=== PATIENT | male | born 1965 | race Caucasian/White ===

== ENCOUNTER 2017-09-19 08:09 | Inpatient (IN) | payer MEDICARE ==
[2017-09-19] VITALS (12 sets, daily range): BP systolic 133–152; BP diastolic 97–105; PULSE 72–96; RESP 18–20; TEMP 97.8–98; O2SAT 95–97
[~2017-09-19] VITALS: Ht 195.6 cm; Wt 123.8 kg
[2017-09-19] MEDS ORDERED: POVIDONE IODINE 5% (ANTISEPSIS KIT) 4 APPLICATIONS EACH NARE SCH (09:00)
[2017-09-19] MEDS ORDERED: METOPROLOL TARTRATE 25 MG TAB PO PRN (09:00)
[2017-09-19] MEDS ORDERED: MUPIROCIN 2% OINT 1 APPLIC/GM SYR NASAL SCH (09:00)
[2017-09-19] MEDS ORDERED: CHLORHEXIDINE GLUCONATE 2 % 1 PACK (2 CLOTHS) TOPICAL PRN (09:00)
[2017-09-19] MEDS ORDERED: CHLORHEXIDINE GLUCONATE 2 % 1 PACK (2 CLOTHS) TOPICAL SCH (09:00)
[2017-09-19] MEDS ORDERED: LACTATED RINGER'S 1000 ML IV PRN (09:00)
[2017-09-19] MEDS ORDERED: ceFAZolin 2 GM PREMIX 50 ML IV SCH (09:00)
[2017-09-19] MEDS ORDERED: SODIUM CHLORID 0.9% 500 ML IV PRN (09:00)
[2017-09-19] MEDS ORDERED: POVIDONE IODINE 5% (ANTISEPSIS KIT) 4 APPLICATIONS EACH NARE PRN (09:00)
[2017-09-19] MEDS ORDERED: VANCOMYCIN 1000 MG/NS 250 ML IV SCH ×2 (09:00)
[2017-09-19] MEDS ORDERED: LORazepam 1 MG TAB SL SCH (09:00)
[2017-09-19 09:06] LABS: AUTOMATED NEUTROPHIL # 9.6 TH/MM3 (1.8-7.7); BASOPHIL # 0.1 TH/MM3 (0-0.2); BASOPHIL % 0.7 % (0.0-2.0); EOSINOPHIL # 0.3 TH/MM3 (0-0.4); EOSINOPHIL % 2.1 % (0.0-4.0); HEMATOCRIT 43.3 % (39.0-51.0); HEMOGLOBIN 14.3 GM/DL (13.0-17.0); LYMPH % 12.2 % (9.0-44.0); LYMPHOCYTE # 1.5 TH/MM3 (1.0-4.8); MEAN CELL VOLUME 97.7 FL (80.0-100.0); MEAN CORPUSCULAR HEMOGLOBIN 32.4 PG (27.0-34.0); MEAN CORPUSCULAR HGB CONC 33.1 % (32.0-36.0); MEAN PLATELET VOLUME 8.5 FL (7.0-11.0); MONO % 7.6 % (0.0-8.0); MONOCYTE # 0.9 TH/MM3 (0-0.9); NEUT % 77.4 % (16.0-70.0); PLATELET COUNT 299 TH/MM3 (150-450); RED BLOOD COUNT 4.43 MIL/MM3 (4.50-5.90); RED CELL DISTRIBUTION WIDTH 15.1 % (11.6-17.2); WHITE BLOOD COUNT 12.4 TH/MM3 (4.0-11.0)
[2017-09-19] MEDS ORDERED: XARE20TA PO (09:13)
[2017-09-19] MEDS ORDERED: CARV12.5 PO (09:13)
[2017-09-19] MEDS ORDERED: SPIRCAP INH (09:13)
[2017-09-19] MEDS ORDERED: SYMB160A INH (09:13)
[2017-09-19] MEDS ORDERED: ASPI81TA23 PO (09:13)
[2017-09-19] MEDS ORDERED: INDO50CA PO (09:13)
[2017-09-19] MEDS ORDERED: BUDE0.25 NEB (09:13)
[2017-09-19] MEDS ORDERED: CARD240C6 PO (09:13)
[2017-09-19 09:26] LABS: BICARBONATE 26.8 MEQ/L (21.0-32.0); CALCIUM 8.6 MG/DL (8.5-10.1); CREATININE 0.94 MG/DL (0.60-1.30)
[2017-09-19 09:31] LABS: INTERNATIONAL NORMALIZED RATIO 1.1 RATIO; PROTHROMBIN TIME - PATIENT 10.9 SEC (9.8-11.6)
[2017-09-19] MEDS ORDERED: FAMOTIDINE 20 MG/2 ML VIAL ONE (11:38)
[2017-09-19] MEDS ORDERED: PROPOFOL 200 MG/20 ML AMP IV ONE (12:00)
[2017-09-19] MEDS ORDERED: DEXAMETHASONE SOD PHOS 4 MG/ML VIAL IV ONE (12:00)
[2017-09-19] MEDS ORDERED: MIDAZOLAM HCL 2 MG/2 ML VIAL ONE ×2 (12:01→12:18)
[2017-09-19] MEDS ORDERED: VANCOMYCIN 500 MG VIAL ONE (12:14)
[2017-09-19] MEDS ORDERED: LIDOCAINE HCL 2% 50 ML VIAL ONE (12:14)
--- NOTE | 2017-09-19 13:27 | CATHPROC ---
[employer] HIS Report Study Information Study Number Admission Scheduled Start Study Start [id number] Sep 19 2017 8:09AM 09/19/2017 Sep 19 2017 11:39AM [place] Service Cardiac Pacer/ICD Admit Source Facility Department Other [facility] - Materials Management Supervisor Physician and Clinical Staff Initial Brianne Cooley Vp Genetic Domenica Hogan RN Other Anesthesia, RUBBER TUBING SPLICER Recorder Missy Herrera,ONELIA Scrub David Roach,RT(R) Procedures Performed Procedure Lead Insertion Equipment Time Administration Vice President Description Size Mfg Part Number Used/Scraped CATHETER, FR4 BERENSTEIN [id number] 12:59 ANGIO-DYNAMICS FR 4 Used 65CM *[id number] DEFIBRILLATOR, INTICA 7 VR-T 12:55 BIOTRONIK VVE-VDDR [id number] Used DX 12:53 BIOTRONIK LEAD, PLEXA PRO-MRI SD 65/18 [id number] Used 13:01 BIOTRONIK LEAD, SOLIA 60 53 PRO MRI * [id number] Used DERMABOND, ADHESIVE SKIN [id number] 11:44 CORDIS/PACER * Used GLUE MINI *[id number] TP-1103 11:44 MEDLINE INDUSTRIES SUTURE, STRIP PLUS 1/2" * Used *[id number] 11:44 MEDLINE PACER LIN, LIMB * 2530 *[id number] Used [id number] 11:44 MEDLINE PACER PACK, PACER CUSTOM * Used *[id number] 12:59 [employer] MEDICAL PACER SAFE SHEATH, FR7, 13CM FR 7 CLS-1007 Used 12:36 [employer] MEDICAL PACER SAFE SHEATH, FR8, 13CM FR 8 CLS-1008 Used 12:42 Needle Sponge Count 2 22 Used 12:42 Needle Sponge Count 20 200 Used 12:41 Needle Sponge Count 3 3 Used 12:59 Needle Sponge Count 4 4 Used SUTURE, 0 ETHIBOND [CT1] (CX21D), 8pk SUTURE, 2-0 VICRYL [CT1] (CDX073R) SUTURE, 2-0 VICRYL [CT1] (FEH573S) [id number] 11:44 [employer] BL[employer]ET,WARM AIR CCL * Used *[id number] [facility] PAD, ELECTROSURGICAL 11:44 * [id number] *[id number] Used SURGICAL GROUNDING ORANGE 4747-5407 11:44 [employer] DENIZ. / * Used *84142 Equipment Model, Serial, Lot Number and Expiration Data Description Model Number Serial Number Lot Number Expiration Date DEFIBRILLATOR, INTICA 7 VR-T DX [id number] 12-13-2018 LEAD, PLEXA PRO-MRI SD 65/18 [id number] 06-14-2019 History: Allergies Allergy Reaction No Known Allergies History: Risk Factors Hypertension Yes Chronic Lung Disease History: Risk Factors Selection Items EF </= 30% Labs Hgb (g/dl) Hct (%) RBC (MIL/MM3) WBC (l/cumm) Platelets (thousands) 11.60-17.00 35.00-51.00 4.00-5.90 4.00-11.00 150.00-450.00 14.0 43 4.4 12.4 299 Glucose (mg/dl) BUN (mg/dl) Creatinine (mg/dl) BUN:Creatinine (1:x) 74.00-106.00 7.00-18.00 0.50-1.30 10.00-20.00 84 11 0.9 12.2 Na (meq/l) K (meq/l) 136.00-145.00 3.50-5.10 140 4.3 INR (PTT:PT) 0.90-1.10 1.1 Medication Medication Total Dose (Bolus/Oral) Medication Total Dosage/Unit 2% XYLOCAINE 50 mL Medications (Bolus/Oral) Medication Time Given Dosage/Unit Administered By Reason 2% XYLOCAINE 09/19/2017 12:48:52 PM 50 mL Brianne Zurita 50 mL 2% XYLOCAINE given in lab by Brianne Zurita via Subcutaneous. Ordered by Brianne Zurita. Medication (Drip) Medication Time Given Dosage/Unit Concentration/Unit Diluent (ml) Solution ANCEF 09/19/2017 12:00:04 PM 1 g 1 g ANCEF given in lab by Anesthesia, RUBBER TUBING SPLICER via Peripheral IV. Ordered by Brianne Zurita. Reason: As pe r physicians verbal order. VANCOMYCIN DRIP 09/19/2017 12:00:50 PM 1 g 1 g VANCOMYCIN DRIP given in lab by Anesthesia, RUBBER TUBING SPLICER via Peripheral IV. Ordered by Brianne Zurita. [place] son: As per physicians verbal order. Initial Case Assessment Cardiovascular HR Rhythm NIBP 83 AF 134/96 Edema Present Skin color Skin None Normal Warm Dry Circulatory - Right Pulses Dorsalis Pedis 1 Scale (0,1,2,3,4,d) Circulatory - Left Pulses Dorsalis Pedis 1 Scale (0,1,2,3,4,d) Circulatory - Lower Extremities Color Lower Right Color Lower Left Normal Normal Neurological State Oriented to time-place- Alert Moves all extremities person Respiration - General Respiration Rate SpO2 (%) (B/min) 20 99 Final Case Assessment Cardiovascular HR NIBP Chest Pain 79 112/70 0 Edema Present Skin color Skin None Normal Warm Dry Circulatory - Right Pulses Dorsalis Pedis 1 Scale (0,1,2,3,4,d) Circulatory - Left Pulses Dorsalis Pedis 1 Scale (0,1,2,3,4,d) Circulatory - Lower Extremities Color Lower Right Color Lower Left Normal Normal Neurological State Oriented to time-place- Drowsy Moves all extremities person Respiration - General Respiration Rate SpO2 (%) (B/min) 16 98 Chronological Log Time Study Chronological Log 11:51:30 Patient arrived via Bed. 11:51:38 Anesthesia at bedside. Assumes care of patient. 11:51:48 Patient Name, D.O.B, / Armband Verified By R.N. 11:51:51 Consent signed by the physician and the patient and verified by the Materials Management Supervisor staff. 11:51:55 Pre-op and post- op instructions given; patient acknowledges understanding of instructions. 11:53:00 Verbal Stimulation=2 Physical Stimulation=2 Airway=2 Respiration=2 TOTAL=8. (0=absent, 1=li mited, 2=present) 11:53:18 Patient has been NPO for More than 6Hrs. 11:53:22 Skin Breakdown- cancerous lesions right cheek, bilateral shoulders, forearms 11:54:30 Patient Warmer Placed on the Table. 11:54:36 Disposable Defibrillator Pads Placed On Patient. 11:54:46 Alejandra Prominences Protected 11:55:54 A # 20 IV was noted in the Wrist (left). Grade = 0 0.9%NaCl @ KVO. 11:55:59 A # 20 IV was noted in the Wrist (right). Grade = 0 0.9% NaCl at KVO. Assessment: Initial Case, HR=83 BPM, Rhythm=AF, JQEY=450/96 mmhg, Edema=None, Color=Normal, Ski n = Warm, Dry Right Pulses: Robert Ped=1 Left Pulses: Robert Ped=1 12:00:00 Lower Right Extremities: Color=Normal Lower Left Extremities: Color=Normal Neurological: State=Alert, Ox3, NEWELL Respiration: Resp=20 B/min, SpO2=99 % 1 g ANCEF given in lab by Anesthesia, RUBBER TUBING SPLICER via Peripheral IV. Ordered by Brianne Zurita. Reason: As per physicians 12:00:04 verbal order. 1 g VANCOMYCIN DRIP given in lab by Anesthesia, RUBBER TUBING SPLICER via Peripheral IV. Ordered by Mary Zurita Reason: As per 12:00:50 physicians verbal order. 12:04:17 History and physical on the chart. 12:04:24 Table restraints applied according to hospital policy 12:04:27 Bovie ground pad applied to: right thigh 12:04:39 2% CHLORHEXIDINE GLUCONATE WASH AND NASAL SWIPE DONE PRIOR TO PROCEDURE. 12:17:58 Upper Chest Prepped Times Two. 12:33:02 Pt draped with sterile drape. 12:34:15 Biotronik rep present in lab for procedure. 12:37:52 Reference ECG taken First Sponge And Instrument Count Done by David Roach, RT(R). 12:40:29 Hypo's: 4, Sponges: 20, Bovie/scratch: 2 Sutures: 10, Blades: 1, Instruments: 26, Syveck Patches: ~SYVECK PATCH~ verified by MM 12:43:59 MD arrived. Time Out #2 - Consents verified, patient in correct position, all results are labled and displa yed, safety precautions 12:46:52 taken, antibiotics administered. Time out concurred by MD, individual staff and RUBBER TUBING SPLICER in procedu re Time Out. Correct patient, procedure, procedure equipment, site and side verified with physicia n present. Time 12:47:52 concurred by MD, individual staff and RUBBER TUBING SPLICER. 12:48:52 50 mL 2% XYLOCAINE given in lab by Brianne Zurita via Subcutaneous. Ordered by Brianne Zurita . 12:49:08 Vascular access was obtained in the Subclav. Vein (Lft. 12:50:01 Surgical Incision Made. 12:50:12 A pocket was created at the L Upper Chest. 12:52:05 A SAFE SHEATH, FR8, 13CM FR 8 was advanced into the Subclav. Vein (Lft using the Modified S eldinger technique. 12:53:37 A LEAD, PLEXA PRO-MRI SD 65/18 was inserted and positioned in the RV. 12:53:57 Lead placement verified under fluoroscopy 12:53:59 The RV lead impedance and threshold being tested. 12:54:11 The RV lead was sutured to the fascia. 12:55:23 A DEFIBRILLATOR, INTICA 7 VR-T DX VVE-VDDR was connected and placed in the pocket. 12:56:00 Pocket flushed with antibiotic solution 13:00:09 A LEAD, SOLIA 60 53 PRO MRI * was inserted and positioned in the RA. Second Sponge And Instrument Count Done by David Roach RT(R). 13:05:39 Hypo's: 4, Sponges: 20, Bovie/scratch: 2 Sutures: 10, Blades: 1, Instruments: 26, Syveck Patches: ~SYVECK PATCH~ 13:09:01 The DFT was Success at 30 Joules, 52 Ohms lead impedance and 5.8 ms charge time. 13:10:41 The pocket is being closed. Final Sponge And Instrument Count Done by David Roach RT(R). 13:10:44 Hypo's: 4, Sponges: 20, Bovie/scratch: 2 Sutures: 10, Blades: 1, Instruments: 26, Syveck Patches: ~SYVECK PATCH~ 13:10:51 Implant Procedure was performed. 13:10:59 A ICD Implant . (Dual) 13:13:32 No case complications noted. 13:13:35 Cine recording checked. 13:13:38 Holding Area notified of successful intervention. Spoke with Rajinder. 13:13:53 Bedside Report will be given. Assessment: Final Case, HR=79 BPM, RYBN=571/70 mmhg, Chest Pain=0, Edema=None, Color=Normal, S kin = Warm, Dry Right Pulses: Robert Ped=1 Left Pulses: Robert Ped=1 13:15:40 Lower Right Extremities: Color=Normal Lower Left Extremities: Color=Normal Neurological: State=Drowsy, Ox3, NEWELL Respiration: Resp=16 B/min, SpO2=98 % 13:17:33 Steri-strips and a sterile dressing applied to site. 13:17:34 Case End 13:20:26 Implantable Device card placed in patient's chart. 13:28:10 Patient moved to stretcher 13:31:39 Defibrillator and ground pads removed. Skin intact. 13:32:00 Transported to recovery area in stable condition. End Study - Contrast Media Used In Study Contrast Total Opened (mL) Total Used (mL) Total Wasted (mL) Unspecified 0 0 0 End Study - Maximum Contrast Load Max Contrast Load (mL) 695.5 End Study - Radiation Exposure Fluoro Time (minutes) 1.2 End Study - Patient Disposition Complications Transferred To Interventional Outcome No Telemetry Bed successful
[2017-09-19] MEDS ORDERED: DO NOT ADM ANY ANTICOAGULANT DRUGS PRN (13:32)
--- NOTE | 2017-09-19 13:36 | PD.CARD ---
DUAL CHAMBER DEFIB IMPLANT PROCEDURE DATE: Sep 19, 2017 NYHA Classification: Class III (Moderate) Prevention: Primary Dual Chamber Defib Mr. Osborne is a 52-year-old male with congestive heart failure, non ischemic cardiomyopathy, ejection fraction 30%, atrial fibrillation, previous ablation admits for dual-chamber defibrillator implantation, device testing and tikosyn administration. The risks, the nature and the benefit of the procedure were clearly stated to his . The risks include pneumothorax, cardiac perforation, stroke, and even . He understood and agreed to proceed. PROCEDURE After written informed consent was obtained the patient was brought to the EP lab where he was prepared and draped in the usual sterile fashion. Conscious sedation was initiated and maintained throughout the procedure by the anesthesiologist. Once sedation was verified, the left infraclavicular area was anesthetized with 2% Xylocaine. Using modified Seldinger technique, the left subclavian vein was cannulated on two occasions and two guidewires were advanced. Then, using #11 blade scalpel, a 3 centimeter incision was made two fingerbreadths below the clavicle. Dissection was then taken down to deep fascial layer using Bovie cautery and blunt dissection. Into the inferomedial direction, a device pocket was dissected. Then the wires were dissected into the pocket. A 2-0 Vicryl suture was placed around the wires to prevent back-bleeding. At this point, over the lateral wire, a 8-Welsh dilator and introducer was advanced. As the dilator and wire were removed, an active fixation right ventricular pacing, sensing and defibrillatory lead was advanced. After adequate pacing and sensing thresholds were obtained, the lead was secured in the pocket using #2 Ethibond suture. Then, over the remaining wire, a 7-Welsh dilator introducer was advanced. As the dilator and wire were removed, an active fixation right atrial pacing and sensing lead was advanced. After adequate pacing and sensing thresholds were obtained, the lead was secured in the pocket using #2 Ethibond suture. At that point, the pocket was copiously irrigated with antibiotic solution. The leads were connected to the generator and placed in the pocket. I did proceed with NIPS. Patient was shocked into sinus rhythm by a 30 joules defibrillatory shock. Shocking impedance was 52 ohms, charge time 5.8 seconds. At that point NIPS was complete. I did proceed with wound closure. The deep fascial layer was approximated using 2-0 Vicryl suture in a continuous fashion. The subcutaneous layer was approximated using 2-0 Vicryl suture in a continuous fashion. The subcuticular layer was approximated with 2-0 Vicryl suture in a continuos fashion. Dermabond adhesive was applied to the wound followed by a sterile pressure dressing. There was no complication. The patient tolerated procedure. Blood loss minimal. IMPLANTED HARDWARE The implanted defibrillator generator is a [employer]let Sciencesronik model number 750843, serial number [id number]. The right atrial pacing and sensing lead is a Biotronik model number Solia S 53, serial number [id number]. The right ventricular pacing, sensing defibrillatory lead is a [employer] Sciencesronik model number 738384. serial # [id number] THRESHOLDS The right atrial pacing threshold in bipolar mode post cardioversion was 0.8 volts at 0.5 milliseconds. Lead impedance 522 ohms and P wave at 2.1 millivolts. The right ventricular pacing threshold in bipolar mode was 0.6 volts at 0.5 milliseconds. Lead impedance 620 ohms and R wave at 9.0 millivolts. SETTINGS The device set in a DDD-60 upper limit 130 beats per minute. AV delay extended to maximum to facilitate A-pacing V-sensing. Defibrillatory portion for two zones, one zone for ventricular tachycardia between 180 to 250 beats per minute. Initial therapy consists of one burst of ATP, one ramp, 81%, 10 pulse, 10 second decremental, followed by a 20, then 30 and all subsequent shocks at 40 -joules defibrillatory shock. The second zone for ventricular fibrillation above 250 beats, first therapy at 30 and all subsequent shocks at 40-joules defibrillatory shock. CONCLUSIONS Successful defibrillator implantation and device testing. COMMENT AND RECOMMENDATIONS The patient will be transferred to telemetry unit. Tikosyn will be initiated. Will be DH in the next 48-72 hours. Brianne Zurita MD Sep 19, 2017 13:36
[2017-09-19] MEDS ORDERED: ONDANSETRON HCL 4 MG/2 ML VIAL IV PUSH PRN (13:45)
[2017-09-19] MEDS ORDERED: SODIUM CHLORIDE 0.9% FLUSH 10 ML FLUSH IV FLUSH PRN (13:45)
[2017-09-19] MEDS ORDERED: ACETAMINOPHEN/CODEINE 300 MG/30 MG TAB PO PRN (13:45)
--- NOTE | 2017-09-19 14:19 | RADRPT ---
EXAM DATE/TIME: 09/19/2017 13:47 [place] COMPARISON: No previous studies available for comparison. INDICATIONS : Evaluate for pacemaker placement. MEDICAL HISTORY : Chronic obstructive pulmonary disease. SURGICAL HISTORY : ENCOUNTER: Subsequent ACUITY: 1 day PAIN SCORE: 4/10 LOCATION: Bilateral chest FINDINGS: The heart is normal in size. Left subclavian dual lead pacemaker has its tips in the right atrium and right ventricle with no pneumothorax noted. The lungs are clear. The only vascular pattern is normal . CONCLUSION: Left subclavian dual-lead pacemaker has its tip in the right atrium and right ventricle and there is no evidence of pneumothorax. Seven Null MD on September 19, 2017 at 14:15 Board Certified Radiologist. This report was verified electronically.
[2017-09-19] MEDS: ACETAMINOPHEN/CODEINE 300 MG/30 MG TAB PO PRN (17:16)
[2017-09-19] MEDS: INDOMETHACIN 50 MG CAP PO SCH (17:16)
[2017-09-19] MEDS: RIVAROXABAN 20 MG TAB PO SCH (17:16)
[2017-09-19] MEDS ORDERED: DOFETILIDE 500 MCG CAP PO SCH (21:00)
[2017-09-19] MEDS: BUDESONIDE-FORMOTEROL 160/4.5 MCG INHALER INH SCH (21:00)
[2017-09-19] MEDS ORDERED: CARVEDILOL 12.5 MG TAB PO SCH (21:00)
[2017-09-19] MEDS: CARVEDILOL 12.5 MG TAB PO SCH (21:17)
[2017-09-19] MEDS: ceFAZolin 2 GM PREMIX 50 ML IV SCH (21:17)
[2017-09-19] MEDS: SODIUM CHLORIDE 0.9% FLUSH 10 ML FLUSH IV FLUSH SCH (21:17)
[2017-09-19] MEDS: SACUBITRIL/VALSARTAN 24 MG-26 MG TAB PO SCH (21:17)
--- NOTE | 2017-09-19 21:24 | EKG ---
Date Performed: 09/19/2017 Time Performed: 09:08:56 PTAGE: 52 years EKG: Atrial fibrillation. Septal T wave changes are nonspecific Abnormal ECG NO PREVIOUS TRACING DOCTOR: Guillermo Cross Interpretating Date/Time 09/19/2017 21:23:15
[2017-09-19] MEDS: DOFETILIDE 250 MCG CAP PO SCH (21:58)
[2017-09-20] VITALS (27 sets, daily range): BP systolic 94–151; BP diastolic 66–106; PULSE 62–89; RESP 16–20; TEMP 97.5–98.4; O2SAT 96–97
[2017-09-20] MEDS: ceFAZolin 2 GM PREMIX 50 ML IV SCH ×2 (03:27→12:29)
[2017-09-20] MEDS ORDERED: RESP: BUDESONIDE 0.25 MG/2 ML NEB NEB SCH (08:00)
[2017-09-20] MEDS: SODIUM CHLORIDE 0.9% FLUSH 10 ML FLUSH IV FLUSH SCH ×2 (09:00→20:37)
[2017-09-20] MEDS: BUDESONIDE-FORMOTEROL 160/4.5 MCG INHALER INH SCH ×2 (09:25→20:37)
[2017-09-20] MEDS: CARVEDILOL 12.5 MG TAB PO SCH ×2 (09:26→20:37)
[2017-09-20] MEDS: TIOTROPIUM BROMIDE 18 MCG INH INH SCH (09:26)
[2017-09-20] MEDS: INDOMETHACIN 50 MG CAP PO SCH ×3 (09:26→17:32)
[2017-09-20] MEDS: RIVAROXABAN 20 MG TAB PO SCH (09:26)
[2017-09-20] MEDS: DOFETILIDE 250 MCG CAP PO SCH ×2 (09:27→20:36)
[2017-09-20] MEDS: ASPIRIN EC 81 MG TABEC PO SCH (09:27)
[2017-09-20] MEDS: SACUBITRIL/VALSARTAN 24 MG-26 MG TAB PO SCH ×2 (09:27→20:37)
[2017-09-20] MEDS: ACETAMINOPHEN/CODEINE 300 MG/30 MG TAB PO PRN ×2 (09:28→20:37)
--- NOTE | 2017-09-20 12:38 | EKG ---
Date Performed: 09/19/2017 Time Performed: 15:59:04 PTAGE: 52 years EKG: Sinus rhythm . Poor initial anterior forces, which may be a normal variant Otherwise, within normal limits Abnorma l ECG PREVIOUS TRACING : 09/19/2017 09.08 Since previous tracing, there is a rhythm change from atria l fibrillation to sinus rhythm DOCTOR: Zach Jacob Interpretating Date/Time 09/20/2017 12:37:06
--- NOTE | 2017-09-20 12:39 | EKG ---
Date Performed: 09/19/2017 Time Performed: 19:11:56 PTAGE: 52 years EKG: Sinus rhythm Poor initial anterior forces, which may be a normal variant Otherwise within normal limits Abnormal ECG PREVIOUS TRACING : 09/19/2017 15.59 Compared to prior tracing no significant change DOCTOR: Zach Jacob Interpretating Date/Time 09/20/2017 12:38:01
--- NOTE | 2017-09-20 12:47 | EKG ---
Date Performed: 09/20/2017 Time Performed: 07:35:08 PTAGE: 52 years EKG: Sinus rhythm Poor initial anterior forces in V1 and V2, which may be a normal variant Otherwise within normal [place] its Abnormal ECG PREVIOUS TRACING : 09/19/2017 19.11 Since previous tracing, no significant change. DOCTOR: Zach Jacob Interpretating Date/Time 09/20/2017 12:45:28
[2017-09-21] VITALS (27 sets, daily range): BP systolic 119–167; BP diastolic 83–99; PULSE 60–70; RESP 18–20; TEMP 97.4–98.2; O2SAT 96–99
[2017-09-21] MEDS: CARVEDILOL 12.5 MG TAB PO SCH ×2 (08:52→20:41)
[2017-09-21] MEDS: ASPIRIN EC 81 MG TABEC PO SCH (08:52)
[2017-09-21] MEDS: SACUBITRIL/VALSARTAN 24 MG-26 MG TAB PO SCH ×2 (08:52→20:41)
[2017-09-21] MEDS: TIOTROPIUM BROMIDE 18 MCG INH INH SCH (08:52)
[2017-09-21] MEDS: DOFETILIDE 250 MCG CAP PO SCH ×2 (08:52→20:41)
[2017-09-21] MEDS: RIVAROXABAN 20 MG TAB PO SCH (08:52)
[2017-09-21] MEDS: INDOMETHACIN 50 MG CAP PO SCH ×3 (08:52→17:12)
[2017-09-21] MEDS: ACETAMINOPHEN/CODEINE 300 MG/30 MG TAB PO PRN ×2 (08:53→20:41)
[2017-09-21] MEDS: BUDESONIDE-FORMOTEROL 160/4.5 MCG INHALER INH SCH ×2 (08:53→20:42)
[2017-09-21] MEDS: SODIUM CHLORIDE 0.9% FLUSH 10 ML FLUSH IV FLUSH SCH ×2 (08:53→20:42)
--- NOTE | 2017-09-21 12:39 | EKG ---
Date Performed: 09/20/2017 Time Performed: 19:12:38 PTAGE: 52 years EKG: Sinus rhythm Lateral T wave changes are nonspecific Poor initial anterior forces, probable normal variant. Since previous tracing, no significant change noted Borderline ECG PREVIOUS TRACING : 09/20/2017 07.35 DOCTOR: Zach Jacob Interpretating Date/Time 09/21/2017 12:38:36
--- NOTE | 2017-09-21 12:40 | EKG ---
Date Performed: 09/21/2017 Time Performed: 07:01:46 PTAGE: 52 years EKG: Sinus rhythm with 1 PVC Poor inital anterior forces, which is probably normal variant Low voltage in precordial l audrey Compared to previous tracing, the PVC is new. Abnormal ECG PREVIOUS TRACING : 09/20/2017 19.12 DOCTOR: Zach Jacob Interpretating Date/Time 09/21/2017 12:40:00
--- NOTE | 2017-09-21 14:47 | PD.CARD.PN ---
Subjective Subjective Remarks no cv complaints Objective Medications Current Medications Medications (Trade) Dose Ordered Sig/Ria Route Start Time Stop Time Status Last Admin Lactated Ringer's 1,000 ml @ 30 mls/hr Q24H PRN IV 09/19/17 09:00 09/22/17 08:59 Sodium Chloride 500 ml @ 30 mls/hr [id number] PRN IV 09/19/17 09:00 09/22/17 08:59 (Lopressor) 25 mg CARGO SURVEYOR PRN PO 09/19/17 09:00 09/22/17 08:59 (Chlorhexidine 2% Cloth) 3 pack CARGO SURVEYOR PRN TOPICAL 09/19/17 09:00 09/22/17 08:59 09/19/17 09:07 Cefazolin Sodium/ Dextrose 50 ml @ 100 mls/hr CARGO SURVEYOR IV 09/19/17 09:00 09/22/17 08:59 (Ativan) 1 mg CARGO SURVEYOR SL 09/19/17 09:00 09/22/17 08:59 (Betadine 5% Antisepsis Kit) 2 applic CARGO SURVEYOR EACH NARE 09/19/17 09:00 09/22/17 08:59 09/19/17 09:06 (Bactroban Nasal 2% Oint) 1 applic CARGO SURVEYOR NASAL 09/19/17 09:00 09/22/17 08:59 Vancomycin HCl 1000 mg/Sodium Chloride 250 ml @ 250 mls/hr CARGO SURVEYOR IV 09/19/17 09:00 09/22/17 08:59 (Zofran Inj) 4 mg Q4H PRN IV PUSH 09/19/17 13:45 (Tylenol-Codeine #3) 1 tab Q4H PRN PO 09/19/17 13:45 09/19/17 21:58 (Tylenol-Codeine #3) 2 tab Q4H PRN PO 09/19/17 13:45 09/21/17 08:53 (NS Flush) 2 ml BID IV FLUSH 09/19/17 21:00 09/21/17 08:53 (NS Flush) 2 ml UNSCH PRN IV FLUSH 09/19/17 13:45 (Ecotrin Ec) 81 mg DAILY PO 09/20/17 09:00 09/21/17 08:52 (Pulmicort Respule Neb) 0.25 mg DAILY NEB NEB 09/20/17 08:00 UNV (Symbicort 160-4.5 Mcg Inh) 2 puff Q12HR INH 09/19/17 21:00 09/21/17 08:53 (Indocin) 50 mg TID PO 09/19/17 18:00 09/21/17 11:25 (Xarelto) 20 mg DAILY PO 09/19/17 15:00 09/21/17 08:52 (Spiriva Inh) 18 mcg DAILY INH 09/20/17 09:00 09/21/17 08:52 (Coreg) 25 mg BID PO 09/19/17 21:00 09/21/17 08:52 (Entresto 24-26 Mg) 1 tab BID PO 09/19/17 21:00 09/21/17 08:52 (Tikosyn) 500 mcg BID PO 09/19/17 21:30 09/21/17 08:52 Vital Signs / I&O Vital Signs Date Time Temp Pulse Resp B/P (MAP) Pulse Ox O2 Delivery O2 Flow Rate FiO2 09/21/17 14:00 61 09/21/17 13:00 65 09/21/17 12:00 63 09/21/17 11:44 97.8 64 18 119/83 (95) 97 09/21/17 11:00 60 09/21/17 10:00 60 09/21/17 09:00 64 09/21/17 08:52 98 Nasal Cannula 2.00 09/21/17 08:00 63 09/21/17 07:38 98 Room Air 09/21/17 07:37 97.4 60 18 138/95 (109) 98 09/21/17 07:00 62 09/21/17 05:00 63 09/21/17 04:00 98.1 62 18 154/93 (113) 99 09/21/17 04:00 62 09/21/17 04:00 Room Air 09/21/17 03:00 67 09/21/17 02:00 62 09/21/17 01:00 64 09/21/17 00:00 Room Air 09/21/17 00:00 98.0 70 18 167/99 (121) 96 09/21/17 00:00 70 09/20/17 23:00 66 09/20/17 22:00 63 09/20/17 21:00 66 09/20/17 20:00 Room Air 09/20/17 20:00 64 09/20/17 20:00 98.2 64 18 151/106 (121) 97 09/20/17 18:00 66 09/20/17 17:00 62 09/20/17 16:20 67 09/20/17 15:45 97.5 62 20 149/93 (111) 97 09/20/17 15:40 75 09/20/17 15:03 Nasal Cannula 2.00 I/O 09/20/17 09/20/17 09/20/17 09/21/17 09/21/17 09/21/17 07:00 15:00 23:00 07:00 15:00 23:00 Intake Total 480 ml 1440 ml 720 ml Output Total 800 ml 1325 ml 1100 ml Balance -320 ml 115 ml -380 ml Intake Oral 480 ml 1440 ml 720 ml Output Urine Total 800 ml 1325 ml 1100 ml # Bowel Movements 0 0 Physical Exam GENERAL: Well-nourished, well-developed patient. SKIN: Warm and dry. HEAD: Normocephalic. EYES: No scleral icterus. No injection or drainage. NECK: Supple, trachea midline. No JVD or lymphadenopathy. CARDIOVASCULAR: Regular rate and rhythm without murmurs, gallops, or rubs. RESPIRATORY: Breath sounds equal bilaterally. No accessory muscle use. GASTROINTESTINAL: Abdomen soft, non-tender, nondistended. EXTREMITIES: No cyanosis, or edema. NEUROLOGICAL: Awake, alert, and oriented x 3. Non-focal. Assessment and Plan Problem List: (1) Congestive heart disease ICD Codes: I50.9 - Heart failure, unspecified Plan: cont medical management anticipated date of discharge tomorrow Dr. Carranza to follow in AM Vu Reyes MD Sep 21, 2017 14:47
[2017-09-22] VITALS (20 sets, daily range): BP systolic 121–135; BP diastolic 74–90; PULSE 62–70; RESP 18–22; TEMP 97.4–98.6; O2SAT 94–98
[2017-09-22] MEDS: SODIUM CHLORIDE 0.9% FLUSH 10 ML FLUSH IV FLUSH SCH (09:00)
[2017-09-22] MEDS: ACETAMINOPHEN/CODEINE 300 MG/30 MG TAB PO PRN (09:28)
[2017-09-22] MEDS: BUDESONIDE-FORMOTEROL 160/4.5 MCG INHALER INH SCH (09:28)
[2017-09-22] MEDS: INDOMETHACIN 50 MG CAP PO SCH ×2 (09:29→13:25)
[2017-09-22] MEDS: DOFETILIDE 250 MCG CAP PO SCH (09:29)
[2017-09-22] MEDS: TIOTROPIUM BROMIDE 18 MCG INH INH SCH (09:29)
[2017-09-22] MEDS: SACUBITRIL/VALSARTAN 24 MG-26 MG TAB PO SCH (09:29)
[2017-09-22] MEDS: CARVEDILOL 12.5 MG TAB PO SCH (09:29)
[2017-09-22] MEDS: ASPIRIN EC 81 MG TABEC PO SCH (09:30)
[2017-09-22] MEDS: RIVAROXABAN 20 MG TAB PO SCH (09:30)
[2017-09-22] MEDS ORDERED: DOFE1CAP PO (18:22)
[2017-09-22] MEDS ORDERED: SACU1TAB PO (18:22)
--- NOTE | 2017-09-22 18:37 | EKG ---
Date Performed: 09/22/2017 Time Performed: 07:31:22 PTAGE: 52 years EKG: Sinus rhythm . Septal T wave changes are nonspecific Borderline ECG PREVIOUS TRACING : 09/21/2017 18.37 Compared to prior tracing no significant change DOCTOR: Kiah Stack Interpretating Date/Time 09/22/2017 18:37:14
--- NOTE | 2017-09-22 18:37 | EKG ---
Date Performed: 09/21/2017 Time Performed: 18:37:38 PTAGE: 52 years EKG: Sinus rhythm . Septal T wave changes are nonspecific Borderline ECG PREVIOUS TRACING : 09/21/2017 07.01 Compared to prior tracing no significant change DOCTOR: Kiah Stack Interpretating Date/Time 09/22/2017 18:36:44
--- NOTE | 2017-09-22 19:40 | MD ---
cc: BHANU MCGREGOR M.D. ADMISSION DATE: 09/19/2017 DISCHARGE DATE: 09/22/2017 Cc: Dictating a progress note and discharge summary HISTORY Mr. Osborne is a 52-year-old gentleman with congestive heart failure, cardiomyopathy, atrial fibrillation, previous ablation, heart failure, ejection fraction around 25-30%. The gentleman undergo defibrillator implantation on Tuesday September 19, 2017. He was cardioverted into sinus rhythm. Tikosyn was initiated. QT interval was around 440 milliseconds. He is tolerating 500 mg very well. PHYSICAL EXAMINATION GENERAL: Today, alert and fully oriented. VITAL SIGNS: His blood pressure 134/90, pulse 68, respiratory 18. LUNGS: Ventilated. CARDIOVASCULAR: S1-S2, no gallop. No murmur. ABDOMEN: Obese. No mass. No bruit. EXTREMITIES: No edema. Electrocardiogram indicates sinus rhythm with QT around 420-[address] and T-wave changes. LABORATORY DATA Hemoglobin is 14.3. Creatinine is 0.94. MEDICATIONS The patient discharged home on: 1. Dofetilide 500 mg twice a day. 2. Coreg 25 mg twice a day. 3. Aspirin. 4. Xarelto 20 mg a day. 5. Indocin 50 mg three times a day p.r.n. 6. Entresto 24 one tablet twice a day. Mr. Osborne is discharged home. Electrocardiogram is recommended on Friday and on Friday this week. Will be monitored. He was advised to take his dofetilide as directed. If he ever misses more than 2 dose to not take the medication and call my office. Also he was advised to inform his primary doctor and all other doctors get in contact for any medication that he is on dofetilide currently. The gentleman aware of the side effect and high risks of arrhythmia associated dofetilide. Heart healthy diet recommended. The patient advised to lose weight and be compliant to medical management. MD IRENE Ruiz/GARETH /6:53 PM /7:09 PM
== END 2017-09-22 18:37 | disposition home or self-care (01) | DRG 227 ==
LOC: HDOC 08:09 → HDIC 08:09 → HCIS 13:36 → HDOC 13:37
PROVIDERS: ADMIT Internal Medicine Interventional Cardiology; ATTEND Internal Medicine Interventional Cardiology
PROC: 02HK3KZ Insertion of Defibrillator Lead into Right Ventricle, Percutaneous Approach (ICD-10-PCS; 2017-09-19)
PROC: 02H63KZ Insertion of Defibrillator Lead into Right Atrium, Percutaneous Approach (ICD-10-PCS; 2017-09-19)
PROC: 0JH608Z Insertion of Defibrillator Generator into Chest Subcutaneous Tissue and Fascia, Open Approach (ICD-10-PCS; principal; 2017-09-19 13:00)
DX: I50.9 Heart failure, unspecified (principal); I42.9 Cardiomyopathy, unspecified; I48.91 Unspecified atrial fibrillation
CPT/HCPCS: 33249; 71045; 80048; 85025; 85610; 85730; 86850; 86900; 86901; 93005; 93641; C1721; C1895; C1898; J0690; J1100; J2250; J3010; J3370